=== PATIENT | female | born 1995 | race Caucasian/White ===

== ENCOUNTER 2017-11-29 06:51 | Inpatient (IN) ==
[~2017-11-29 06:51] MED LIST: LACTATED RINGERS 1,000 ML IV SCH
[2017-11-29] MEDS ORDERED: BUPIVACAINE SPINAL 0.75% 2 ML AMP SPINAL ONE (07:09)
[2017-11-29] MEDS ORDERED: fentaNYL 100 MCG/2 ML VIAL ONE (07:09)
[2017-11-29] MEDS ORDERED: ONDANSETRON 4 MG/2 ML VIAL ONE (07:09)
[2017-11-29] MEDS ORDERED: MORPHINE 10 MG/10 ML VIAL ONE (07:09)
[2017-11-29] MEDS: LACTATED RINGERS 1,000 ML IV SCH ×3 (07:30→20:18)
[2017-11-29] MEDS ORDERED: ceFAZolin 2,000 MG in PREMIX 1 EACH IV ONE (07:50)
[2017-11-29] MEDS ORDERED: CITRIC ACID/SODIUM CITRATE 30 ML UDCUP PO ONE (07:50)
[2017-11-29] MEDS ORDERED: FAMOTIDINE 20 MG/2 ML VIAL IV ONE (07:50)
[2017-11-29 08:19] LABS: Basophils % 0.3 % (0.0-0.8); Eosinophils # 0.1 10*3/uL (0.0-0.87); Hematocrit 33.5 VOL% (35.7-47.0); Immature Granulocytes % 1.4 %; Immature Granulocytes Absolute 0.13 #; Lymphocytes # 2.5 10*3/uL (1.4-4.0); Lymphocytes % 27.2 % (21.3-54.2); Mean Corpuscular HGB Conc 35.8 GM/DL (32-36); Mean Corpuscular Hemoglobin 33 PG (27-34); Mean Corpuscular Volume 91.8 FL (87-102); Mean Platelet Volume 10.2 FL (9.6-12.0); Monocytes # 0.7 10*3/uL (0.11-0.8); Monocytes % 7.6 % (1.7-12.7); Neutrophils # 5.9 10*3/uL (1.4-7.4); Neutrophils % 62.5 % (38.7-73.9); Platelet Count 229 T/CUMM (130-400); Red Blood Count 3.65 MC/CUMM (3.8-5.5); Red Cell Distribution Width 12.8 % (9.3-17.3); White Blood Count 9.4 T/CUMM (4-12)
[2017-11-29 08:43] LABS: Alanine Aminotransferase 18 U/L (13-56); Albumin 2.9 G/DL (3.4-5.0); Alkaline Phosphatase 104 U/L (45-117); Aspartate Amino Transferase 18 U/L (0-37); Bilirubin,Total < 0.39 MG/DL (0.2-1.0); Blood Urea Nitrogen 9 MG/DL (7-18); Calcium 8.7 MG/DL (8.5-10.1); Glucose 89 MG/DL (74-106); Osmolality,Calculated 272.7 MOS/KG (273-304); Potassium 3.8 MMOL/L (3.5-5.1); Sodium 138 MMOL/L (136-145); Total Protein 6.7 G/DL (6.4-8.3)
[2017-11-29] MEDS ORDERED: LACTATED RINGERS 1,000 ML IV SCH ×2 (08:57→11:00)
[2017-11-29] MEDS ORDERED: OXYTOCIN/LR 20 UNIT/1,000 ML BAG IV ONE ×2 (09:20→10:18)
[2017-11-29] MEDS ORDERED: OXYTOCIN 10 UNIT/ML VIAL ONE (09:20)
[2017-11-29] MEDS ORDERED: OXYTOCIN/LR 30 UNIT/1,000 ML BAG IV ONE (09:22)
[2017-11-29] MEDS ORDERED: ONDANSETRON 4 MG/2 ML VIAL IV PRN (10:18)
[2017-11-29] MEDS ORDERED: ACETAMINOPHEN 325 MG TABLET PO PRN (10:18)
[2017-11-29] MEDS ORDERED: RHO(D) IMMUNE GLOBULIN 300 MCG SYRINGE IM ONE (10:30)
[2017-11-29] MEDS ORDERED: hydrOXYzine HCL 25 MG/1 ML VIAL IM PRN (10:45)
[2017-11-29] MEDS ORDERED: diphenhydrAMINE 50 MG/1 ML VIAL IV ONE (10:45)
[2017-11-29] MEDS ORDERED: MEPERIDINE 25 MG/1 ML VIAL IV PRN (10:45)
[2017-11-29] MEDS ORDERED: SODIUM CHLORIDE 0.9% 1,000 ML IV SCH (11:00)
[2017-11-29 11:05] LABS: Apearance,Urine Clear (Clear); Bilirubin,Urine Negative (Negative); Blood, Urine Negative (Negative); Glucose,Urine (UA) Negative (Negative); Ketones,Urine Negative (Negative); Nitrite,Urine Negative (Negative); Protein,Urine Negative; Urine Color Colorless (Yellow); Urine Specific Gravity 1.005 (1.001-1.035); Urine Urobilinogen 0.2 EU/DL (0.2-1.0)
[2017-11-29] MEDS ORDERED: MEPERIDINE 50 MG/1 ML VIAL ONE (12:24)
[2017-11-29] MEDS ORDERED: LEVOTHYROXINE 137 MCG TABLET PO ONE (13:20)
[2017-11-29] MEDS: ceFAZolin 1,000 MG in SYRINGE 1 EACH IV SCH ×2 (16:23→23:42)
[2017-11-29 16:56] LABS: Basophils % 0.2 % (0.0-0.8); Eosinophils % 0.4 % (0.00-10.9); Hematocrit 28.6 VOL% (35.7-47.0); Hemoglobin 10.2 GM/DL (12.0-16.0); Immature Granulocytes % 1.2 %; Immature Granulocytes Absolute 0.13 #; Lymphocytes # 2.1 10*3/uL (1.4-4.0); Lymphocytes % 18.6 % (21.3-54.2); Mean Corpuscular HGB Conc 35.7 GM/DL (32-36); Mean Corpuscular Hemoglobin 32 PG (27-34); Mean Corpuscular Volume 90.2 FL (87-102); Mean Platelet Volume 9.6 FL (9.6-12.0); Monocytes # 0.8 10*3/uL (0.11-0.8); Monocytes % 7.3 % (1.7-12.7); Neutrophils % 72.3 % (38.7-73.9); Platelet Count 191 T/CUMM (130-400); Red Blood Count 3.17 MC/CUMM (3.8-5.5); Red Cell Distribution Width 12.6 % (9.3-17.3)
[2017-11-29] MEDS ORDERED: MEPERIDINE 50 MG/1 ML VIAL IV PRN (18:29)
[2017-11-29] MEDS: IBUPROFEN 800 MG TABLET PO PRN (20:18)
[2017-11-29] MEDS: DOCUSATE SODIUM 100 MG CAPSULE PO SCH (20:18)
[2017-11-30] MEDS: LACTATED RINGERS 1,000 ML IV SCH (04:59)
[2017-11-30] MEDS: LEVOTHYROXINE 137 MCG TABLET PO SCH (05:56)
[2017-11-30 07:57] LABS: Basophils % 0.4 % (0.0-0.8); Eosinophils # 0.1 10*3/uL (0.0-0.87); Eosinophils % 1.1 % (0.00-10.9); Hematocrit 26.5 VOL% (35.7-47.0); Hemoglobin 9.1 GM/DL (12.0-16.0); Immature Granulocytes Absolute 0.08 #; Lymphocytes # 1.9 10*3/uL (1.4-4.0); Mean Corpuscular HGB Conc 34.3 GM/DL (32-36); Mean Corpuscular Hemoglobin 32 PG (27-34); Mean Platelet Volume 9.8 FL (9.6-12.0); Monocytes # 0.6 10*3/uL (0.11-0.8); Monocytes % 7.9 % (1.7-12.7); Neutrophils # 5.1 10*3/uL (1.4-7.4); Neutrophils % 65.6 % (38.7-73.9); Platelet Count 181 T/CUMM (130-400); Red Blood Count 2.85 MC/CUMM (3.8-5.5); Red Cell Distribution Width 12.8 % (9.3-17.3); White Blood Count 7.8 T/CUMM (4-12)
[2017-11-30] MEDS: MULTIVITAMIN (PRENATAL) TABLET PO SCH (08:25)
[2017-11-30] MEDS: DOCUSATE SODIUM 100 MG CAPSULE PO SCH ×2 (08:25→20:37)
[2017-11-30] MEDS: ONDANSETRON 4 MG TABLET PO PRN (11:30)
[2017-11-30] MEDS: IBUPROFEN 800 MG TABLET PO PRN ×2 (13:02→20:37)
[2017-11-30] MEDS: MAGNESIUM HYDROXIDE SUSP 30 ML UDCUP PO PRN (20:37)
[2017-11-30] MEDS: SIMETHICONE CHEW 80 MG TABLET PO PRN (20:37)
[2017-12-01] MEDS: oxyCODONE/ACETAMINOPHEN 5-325 MG TABLET PO PRN ×3 (01:38→17:38)
[2017-12-01] MEDS: IBUPROFEN 800 MG TABLET PO PRN ×3 (04:23→19:26)
[2017-12-01] MEDS: LEVOTHYROXINE 137 MCG TABLET PO SCH (06:41)
[2017-12-01] MEDS: MULTIVITAMIN (PRENATAL) TABLET PO SCH (08:46)
[2017-12-01] MEDS: DOCUSATE SODIUM 100 MG CAPSULE PO SCH ×3 (08:46→22:08)
[2017-12-01] MEDS: MAGNESIUM HYDROXIDE SUSP 30 ML UDCUP PO PRN (14:36)
[2017-12-01] MEDS ORDERED: BISACODYL 10 MG SUPP RECTAL PRN (18:15)
[2017-12-01] MEDS ORDERED: MAGNESIUM CITRATE 300 ML BOTTLE PO PRN (19:16)
[2017-12-01] MEDS ORDERED: LORazepam 1 MG TABLET PO ONE (19:17)
[2017-12-01] MEDS: SIMETHICONE CHEW 80 MG TABLET PO PRN (19:26)
[2017-12-01] MEDS ORDERED: METOCLOPRAMIDE 10 MG TABLET PO PRN (22:07)
[2017-12-02] MEDS: MAGNESIUM HYDROXIDE SUSP 30 ML UDCUP PO PRN (00:14)
[2017-12-02] MEDS: oxyCODONE/ACETAMINOPHEN 5-325 MG TABLET PO PRN ×2 (01:03→09:28)
[2017-12-02] MEDS: ONDANSETRON 4 MG TABLET PO PRN ×2 (05:16→11:38)
[2017-12-02] MEDS: LEVOTHYROXINE 137 MCG TABLET PO SCH (06:35)
[2017-12-02 07:23] VITALS: BP 119/56
[2017-12-02] MEDS: MULTIVITAMIN (PRENATAL) TABLET PO SCH (09:27)
[2017-12-02] MEDS: DOCUSATE SODIUM 100 MG CAPSULE PO SCH (09:27)
== END 2017-12-02 14:25 | disposition home or self-care (01) | DRG 766 ==
LOC: N.LDOUT 06:51 → N.LD 06:53 → N.OB 13:10
PROVIDERS: ADMIT Obstetrics & Gynecology; ATTEND Obstetrics & Gynecology
PROC: LDCSECT (ICD-10-PCS; 2017-11-29 07:30)